=== PATIENT | male | born 1995 | race Two or more races ===

== ENCOUNTER 2023-03-20 21:56 | Emergency (ER) | payer BC, OTHER ==
[~2023-03-20] VITALS: Ht 188 cm; Wt 77.1 kg
[2023-03-20 22:01] VITALS: BP 134/76; TEMP 98.7; O2SAT 98
== END 2023-03-20 23:59 | disposition home or self-care (01) ==
LOC: ER 22:00
DX: B34.9 Viral infection, unspecified (principal); Z20.822 Contact with and (suspected) exposure to COVID-19
CPT/HCPCS: 99283; 87426; 87804; 87880; C9803; 86403-TC